=== PATIENT | male | born 1955 | race Caucasian/White ===

== ENCOUNTER 2018-11-18 12:14 | Inpatient (IN) | payer OTHER ==
[~2018-11-18] VITALS: Ht 167.6 cm; Wt 64.9 kg
--- NOTE | 2018-11-18 12:19 | NUR ---
SPOKE TO [facility] [employer], STS SHE DID NOT KNOW SHE WAS SUPPOSED TO CALL AHEAD OF TIME. PER CONCEPCION, PTS G-TUBE BROKE AND WERE UNABLE TO GET G-TUBE PIECE OUT SO PRIMARY MD AT FACILITY TOLD THEM TO GO TO ER.
[2018-11-18 12:24] VITALS: Ht 167.6 cm; Wt 64.9 kg
--- NOTE | 2018-11-18 13:00 | NUR ---
PT W/GT TIP BROKEN OFF. UNABLE TO DEFLATE OR INFLATE BALLOON. DR UGALDE AT . COMFORT MEASURES AND SUPPORTIVE CARE CONTINUED.
[2018-11-18 13:09] LABS: BASOPHIL % 0.3 % (0-2); PLATELET COUNT 139 x10^3mcL (130-400); RED CELL DISTRIBUTION WIDTH 12.6 % (11.5-14.5)
[2018-11-18 13:16] LABS: CALCIUM 9.4 mg/dL (8.5-10.1); CARBON DIOXIDE 29.8 mmol/L (21-32); CHLORIDE SERUM 103 mmol/L (98-107); CREATININE SERUM 0.6 mg/dL (0.7-1.3); GFR1 > 60 mL/min; GLUCOSE SERUM 100 mg/dL (74-106); POTASSIUM SERUM 4.5 mmol/L (3.5-5.1); SODIUM SERUM 140 mmol/L (136-145)
[2018-11-18 13:21] LABS: ALBUMIN 3.6 g/dL (3.4-5.0); ALKALINE PHOSPHATASE 106 U/L (46-116); ALT/SGPT 25 U/L (16-63); AST/SGOT 12 U/L (15-37); BILIRUBIN TOTAL 0.4 mg/dL (0.20-1.00); TOTAL PROTEIN, SERUM 7.9 g/dL (6.4-8.2)
--- NOTE | 2018-11-18 13:40 | NUR ---
MAINTENANCE IV FLUIDS INITIATED PER ORDER. BARREL RAISER HELPER NURSE ESTELITA AT BEDSIDE. CALL LIGHT IN REACH. NAD NOTED.
--- NOTE | 2018-11-18 15:33 | NUR ---
NO CHANGE IN CONDITION. CARE PROVIDER AT . NO FURTHER ORDERS AT THIS TIME.
--- NOTE | 2018-11-18 15:40 | NUR ---
REPORT CALL TO PEYMAN WILKES.
[2018-11-18 16:41] VITALS: BP 134/77
--- NOTE | 2018-11-18 16:46 | NUR ---
RECEIERICO PT FROM ED VIA [facility]. IV NOTED TO LAC PATENT AND INTACT. BED IN LOWEST POSITION AND SIDE RAILS UPX2. ENDORSED PT TO PRIMARY NURSE PEYMAN
--- NOTE | 2018-11-18 16:50 | NUR ---
AWAKE, NON VERBAL, CONTRACTED, ABLE TO MOVE UPPER EXTREAMITIES WITH LIMITATION NOTED, TOTAL CARE. HEADING MACHINE OPERATOR FROM [facility] AT BEDSIDE PROVIDED INFORMATION. ADMITS FOR G TUBE MALFUNCTION, NO ERYTHEMA OR DRAINAGE NOTED TO SITE, PHOTO TAKEN. INCONTINENCE. DIAPER REMOVED, NO SKIN BREAKDOWN NOTED. REPOSITIONED TO LEFT SIDE. NEW CHUCKS APPLIED. IV TO LAC FLUSHED PATENT. ON AIRLOSS MATTRESS. ALL SIDERAILS UP X4. WILL CONTINUE TO MONITOR.
--- NOTE | 2018-11-18 17:29 | NUR ---
IVF D5NS AT 80ML/HR INFUSING TO LAC IV SITE. GRAPPLE SKIDDER OPERATOR FROM [facility] AT BEDSIDE STATED WILL STAY UNTIL 9PM.
--- NOTE | 2018-11-18 19:40 | NUR ---
AWAKE, NON VERBAL. MED SURG. BREATHING E/U ON RA. G TUBE PRESENT, CURRENTLY CLAMPED. SURROUNDING SKIN INTACT. BOWEL SOUNDS ACTIVE X 4 QUADRANTS. PT WITH CONTRACTURES TO BUE AND BLE. ON AIR MATTRESS. REDNESS NOTED TO RFA AND FRANSISCO. IV TO LAC, PATENT AND INFUSING. BED IN LOWEST POSITION, 2 SIDE RAILS UP, CALL LIGHT IN REACH. INSTRUCTED TO CALL FOR ASSISTANCE. TONIE FROM [facility] AT BEDSIDE.
[2018-11-18 20:30] VITALS: BP 166/79
--- NOTE | 2018-11-18 23:30 | NUR ---
PT PLACED ON TELEMETRY AT THIS TIME FOR IV HYDRALZINE ADMINISTRATION.
--- NOTE | 2018-11-18 23:40 | NUR ---
NEW AUDIBLE CONGESTION HEARD IN PT'S LUNG SOUNDS. IV FLUIDS STOPPED PER NURSING JUDGEMENT. DR. DENT MADE AWARE.
[2018-11-19] VITALS (7 sets, daily range): BP systolic 131–166; BP diastolic 68–89
--- NOTE | 2018-11-19 00:33 | NUR ---
PT HAS DEVELOPED NEW FACIAL FLUSHING. DR. DENT MADE AWARE AND AT BEDSIDE FOR ASSESSMENT. BP 131/69, HR 94, O2 SAT 96% ON RA.
--- NOTE | 2018-11-19 01:55 | NUR ---
RESTING IN BED WITH EYES CLOSED. BREATHING E/U. NO ACUTE DISTRESS NOTED. WILL CONTINUE TO MONITOR. HELPER [employer] FROM [facility] AT BEDSIDE.
--- NOTE | 2018-11-19 03:50 | NUR ---
PT HAD 10 SECOND RUN OF V-TACH. VSS. PT IN NO ACUTE DISTRESS.
--- NOTE | 2018-11-19 07:36 | NUR ---
RECEIVED PT FROM SHIFT NURSE AWAKE, APHASIC. NO ACUTE DISTRESS NOTED. HEPLOCK PATENT. FALL PRECAUTIONS IN PLACE. BED IN LOW POSITION. CALL LIGHT WITHIN REACH. WILL CONTINUE TO MONITOR.
--- NOTE | 2018-11-19 09:10 | NUR ---
GAVE MORPHINE PRIOR TO GTUBE REMOVAL BY DR. MCCLURE.
--- NOTE | 2018-11-19 09:15 | NUR ---
GAVE MORPHINE PRIOR TO GTUBE CHANGE BY DR. MCCLURE
--- NOTE | 2018-11-19 09:19 | NUR ---
GT TUBE REMOVED BY DR. MCCLURE
--- NOTE | 2018-11-19 10:13 | NUR ---
PT AWAKE. NO ACUTE DISTRESS NOTED. BED IN LOW POSITION. CAREGIVER AT BEDSIDE. WILL CONTINUE TO MONITOR.
--- NOTE | 2018-11-19 14:55 | NUR ---
PT AWAKE APHASIC UPON DISCHARGE. NO ACUTE DISTRESS NOTED. IV REMOVED AND CATH INTACT. EDUCATION PROVIDED TO CAREGIVERS. VERBALIZED UNDERSTANDING. PERSONAL BELONGINGS TAKEN HOME. ACCOMPANIED BY CAREGIVERS AND RN TO LOBBY.
== END 2018-11-19 14:45 | DRG 393 ==
LOC: ED 12:14 → MU 15:59 → DU 15:59 → MU 16:25 → DU 23:10
PROVIDERS: Specialist; ADMIT General Practice
PROC: 0D20XUZ Change Feeding Device in Upper Intestinal Tract, External Approach (ICD-10-PCS; principal; 2018-11-18)
DX: K94.23 Gastrostomy malfunction (principal); G80.0 Spastic quadriplegic cerebral palsy; I10 Essential (primary) hypertension; K21.9 Gastro-esophageal reflux disease without esophagitis; K59.09 Other constipation; F03.90 Unspecified dementia, unspecified severity, without behavioral disturbance, psychotic disturbance, mood disturbance, and anxiety
CPT/HCPCS: 43760; G0378; J0360; J2060; J2270; J7030; J7042; J7620; Q0092; Q9967